=== PATIENT | female | born 1955 | race Caucasian/White ===

== ENCOUNTER 2021-07-08 05:11 | Emergency (ER) | payer MEDICARE ==
[~2021-07-08] VITALS: Ht 170.2 cm; Wt 70.8 kg
--- NOTE | 2021-07-08 05:19 | NUR ---
MD Gustavo Connors in room to do MSE.
[2021-07-08] MEDS ORDERED: IV NORMAL SALINE 500 ML BAG IV ONE (05:30)
[2021-07-08] MEDS ORDERED: ONDANSETRON 4 MG/2 ML VIAL IV ONE (05:30)
[2021-07-08] MEDS ORDERED: MECLIZINE HCL 25 MG TABLET PO ONE (05:30)
[2021-07-08] MEDS ORDERED: ONDANSETRON 4 MG/2 ML VIAL ONE (05:37)
[2021-07-08] MEDS ORDERED: MECLIZINE HCL 25 MG TABLET ONE (05:37)
[2021-07-08 05:45] LABS: HEMATOCRIT 35.9 % (31.2-41.9); MEAN CORPUSCULAR HEMOGLOBIN 31.3 uug (24.7-32.8); MEAN CORPUSCULAR VOLUME 91.6 fL (75.5-95.3); PLATELET COUNT (AUTO) 309 K/uL (179-408)
[2021-07-08] MEDS ORDERED: ONDA4TAB5 PO (05:45)
[2021-07-08] MEDS ORDERED: MECL-159 PO (05:45)
[2021-07-08 06:01] LABS: BILIRUBIN,TOTAL 0.3 mg/dL (0.2-1.0)
[2021-07-08 06:02] LABS: CREATININE 0.9 mg/dL (0.6-1.3); POTASSIUM 3.7 mmol/L (3.5-5.1)
[2021-07-08 06:12] LABS: BILIRUBIN,DIRECT 0.1 mg/dL (0.0-0.2); THYROID STIMULATING HORMONE 2.658 mIU/mL (0.358-3.740)
--- NOTE | 2021-07-08 06:30 | NUR ---
Patient is resting comfortably in bed with eyes closed, no acute distress noted.
[2021-07-08] MEDS ORDERED: VENL37.510 PO (07:00)
--- NOTE | 2021-07-08 07:10 | NUR ---
Hands off report given to Jackie DOOLEY.
[2021-07-08] MEDS ORDERED: LORAZEPAM 2 MG/1 ML VIAL IV ONE (07:15)
[2021-07-08] MEDS ORDERED: LORAZEPAM 2 MG/1 ML VIAL ONE (07:24)
--- NOTE | 2021-07-08 07:30 | NUR ---
Received patient in shift report
--- NOTE | 2021-07-08 10:08 | NUR ---
Patient unable to walk with steady gait due to persistent dizziness
--- NOTE | 2021-07-08 10:59 | NUR ---
Spoke with Efraín elizabeth Cushman regarding patient transfer
--- NOTE | 2021-07-08 13:00 | NUR ---
MD Lange of [facility] states he will accept the patient at [facility]
--- NOTE | 2021-07-08 15:23 | NUR ---
patient continues to rest at this time, no signs of distress noted
--- NOTE | 2021-07-08 18:28 | NUR ---
Chair Maker Nurse Collier of [facility] , nurse states she cant accept a verbal report at this time because the patient is due for admission on cutting room supervisor. Patient will be endorsed to cutting room supervisor nurse. Patient scheduled to be placed in room #855. [facility] scheduled pick pulling machine operator for 7:45pm .
--- NOTE | 2021-07-08 19:47 | NUR ---
Report given to SOUMYA Casarez at [facility].
--- NOTE | 2021-07-08 20:04 | NUR ---
Followed up on transportation for patient via [facility], Dispatcher Roland stated he will be following up on late arrival of unit and will dispatch a unit to hop picker the patient jami.
--- NOTE | 2021-07-08 21:05 | NUR ---
Followed up with [facility] on ETA, dispatcher Roland stated it would be 15-20 minutes from now.
--- NOTE | 2021-07-08 22:01 | NUR ---
Checked up with [facility] once more, stated there is a delay. Now ETA is 30-35 minutes from now.
--- NOTE | 2021-07-08 22:54 | NUR ---
Unit [facility] took report, will transport patient soon.
--- NOTE | 2021-07-08 22:57 | NUR ---
Patient Transfers to outside Facility Physician: Dr. Merrill Location: [facility]
== END 2021-07-08 22:58 | disposition short-term general hospital (02) ==
LOC: ER 05:14
DX: R42 Dizziness and giddiness (principal); I44.0 Atrioventricular block, first degree; F41.9 Anxiety disorder, unspecified; Z88.2 Allergy status to sulfonamides; Z20.822 Contact with and (suspected) exposure to COVID-19
CPT/HCPCS: 36415; 70450; 80048; 80076; 84443; 84484; 85025; 85730; 87426; 93005 ×2; 96374; 96375; 99285; J2060; J2405; 70030-TC; A4663; J7030; J8597

== ENCOUNTER 2024-10-18 17:17 | Emergency (ER) | payer BC, MEDICARE ==
[~2024-10-18] VITALS: Ht 167.6 cm; Wt 70.3 kg
[~2024-10-18 17:17] MED LIST: MECL-159 PO; ONDA4TAB5 PO; VENL37.510 PO
[2024-10-18] MEDS ORDERED: ACETAMINOPHEN 500 MG TABLET ONE (19:07)
[2024-10-18] MEDS: ACETAMINOPHEN 500 MG TABLET PO ONE (19:12)
[2024-10-18 19:19] LABS: BASOPHILS # (AUTO) 0.1 K/UL (0.0-0.2); BASOPHILS % (AUTO) 1.1 % (0.0-2.0); DIFFERENTIAL COMMENT 1; EOSINOPHILS # (AUTO) 0.4 K/uL (0.0-0.7); EOSINOPHILS % (AUTO) 5.8 % (0.0-7.0); HEMATOCRIT 36.6 % (31.2-41.9); HEMOGLOBIN 12.2 g/dL (10.9-14.3); LYMPHOCYTES # (AUTO) 2.1 K/uL (0.8-4.8); LYMPHOCYTES % (AUTO) 31.4 % (20.5-51.5); MEAN CORPUSCULAR HEMOGLOBIN 31.4 uug (24.7-32.8); MEAN CORPUSCULAR HGB CONC 33 g/dL (32.3-35.6); MONOCYTES # (AUTO) 0.5 K/uL (0.1-1.30); MONOCYTES % (AUTO) 7.4 % (0.0-11.0); NEUTROPHILS # (AUTO) 3.6 K/uL (1.8-8.9); NEUTROPHILS % (AUTO) 54.3 % (38.5-71.5); PLATELET COUNT (AUTO) 355 K/uL (179-408); RED BLOOD CELL COUNT(AUTO) 3.89 MIL/uL (3.63-4.92); WHITE BLOOD COUNT (AUTO) 6.6 K/uL (3.8-11.8)
[2024-10-18 19:26] LABS: CALCIUM 9.6 mg/dL (8.5-10.1); CARBON DIOXIDE 31 mmol/L (21-32); CHLORIDE 106 mmol/L (98-107); CREATININE 0.8 mg/dL (0.6-1.3); GLUCOSE 112 mg/dL (74-106); POTASSIUM 3.7 mmol/L (3.5-5.1); SODIUM SERUM 142 mmol/L (136-145); UREA NITROGEN, BLOOD 16 mg/dL (7-18)
[2024-10-18 19:32] LABS: ALANINE AMINOTRANSFERASE 28 U/L (14-59); ALBUMIN 3.5 g/dL (3.4-5.0); ALKALINE PHOSPHATASE 133 U/L (50-136); ASPARTATE AMINOTRANSFERASE 11 U/L (15-37); BILIRUBIN,TOTAL 0.3 mg/dL (0.2-1.0); TOTAL PROTEIN, SERUM 7.6 g/dL (6.4-8.2)
[2024-10-18 20:24] VITALS: BP 135/74; O2SAT 96
== END 2024-10-18 20:25 | disposition home or self-care (01) ==
LOC: ER 17:17
DX: R51.9 Headache, unspecified (principal); R42 Dizziness and giddiness; T60.91XA Toxic effect of unspecified pesticide, accidental (unintentional), initial encounter; R07.89 Other chest pain; R26.89 Other abnormalities of gait and mobility; R53.1 Weakness; F41.9 Anxiety disorder, unspecified; Z60.2 Problems related to living alone; Z79.899 Other long term (current) drug therapy; Z88.2 Allergy status to sulfonamides; Y92.89 Other specified places as the place of occurrence of the external cause
CPT/HCPCS: 36415; 71045; 85025; 93005; A4606; A4663; A9150